=== PATIENT | female | born 1995 | race Caucasian/White ===

== ENCOUNTER 2018-02-22 17:47 | Emergency (ER) | payer BC ==
[~2018-02-22] VITALS: Ht 165.1 cm; Wt 136.0 kg
[2018-02-22 18:41] LABS: HEMATOCRIT 36.7 % (36.0-46.0); MCH 24.8 PG (29.0-34.0); MCHC 32.7 G/DL (30.0-36.0); PLATELET COUNT 306 K/uL (156-360); RBC DIS.WIDTH-CV 13.9 % (11.8-14.6); RED BLOOD COUNT 4.83 M/uL (3.80-5.20); WHITE BLOOD COUNT 11.1 K/uL (4.1-10.2)
[2018-02-22 18:55] LABS: ALBUMIN 3.6 g/dL (3.2-4.8)
[2018-02-22 18:56] LABS: CHLORIDE 109 mEq/L (99-109); SODIUM 140 mEq/L (136-147)
[2018-02-22 18:58] LABS: GLUCOSE 94 mg/dL (70-99); TOTAL PROTEIN 6.8 g/dL (6.4-8.3)
[2018-02-22 19:00] LABS: TOTAL BILIRUBIN 0.2 mg/dL (0.0-1.0)
[2018-02-22 19:01] LABS: ALKALINE PHOSPHATASE 91 IU/L (3-129)
[2018-02-22 19:02] LABS: CREATININE 0.7 mg/dL (0.6-1.3); GFR ESTIMATE (CALCULATED) > 59 mL/min/
[2018-02-22 19:03] LABS: AST (GOT) 12 IU/L (2-34); UREA NITROGEN (BUN) 6 mg/dL (9-23)
[2018-02-22 19:04] LABS: ALT (GPT) 19 IU/L (3-49)
[2018-02-22 20:32] LABS: APPEARANCE SL.HAZY ((CLEAR)); BILIRUBIN NEGATIVE; BLOOD NEGATIVE; COLOR YELLOW ((YELLOW)); GLUCOSE (STRIP) NEGATIVE; KETONES NEGATIVE; LEUKOCYTES NEGATIVE; NITRITE NEGATIVE; PROTEIN (STRIP) NEGATIVE; UROBILINOGEN 0.2 MG/DL (0.2-1.0)
[2018-02-22 20:57] LABS: EPITHELIAL CELLS RARE /HPF; RED BLOOD CELLS 0-5 /HPF (0-5); WHITE BLOOD CELLS 0-5 /HPF (0-5)
[2018-02-22 20:58] LABS: BACTERIA RARE /HPF; CALCIUM OXALATE CRYSTALS 3+ /HPF; MUCUS TRACE /LPF; UCUL ADDED? NO
[2018-02-23 00:16] VITALS: BP 130/73
== END 2018-02-23 00:17 | disposition home or self-care (01) ==
LOC: EME 17:47
DX: O34.82 Maternal care for other abnormalities of pelvic organs, second trimester (principal); N83.202 Unspecified ovarian cyst, left side; Z3A.21 21 weeks gestation of pregnancy
CPT/HCPCS: 76805; 80053; 81003; 84702; 85027; 99281; 99284

== ENCOUNTER 2018-06-27 15:26 | Outpatient (CLI) | payer BC, OTHER ==
[2018-06-27 15:58] VITALS: BP 136/76
[2018-06-27 16:17] VITALS: BP 120/74
[2018-06-27 16:29] VITALS: BP 115/69
[2018-06-27 16:35] LABS: BASOPHIL (%) 0.2 % (0-1); EOSINOPHIL (%) 0.7 % (0-5); EOSINOPHIL COUNT 0.1 K/uL (0-0.3); HEMOGLOBIN 10.2 G/DL (11.9-15.5); IMMATURE GRANULOCYTE (%) 0.5 % (0.0-0.7); LYMPHOCYTE (%) 14.1 % (15-42); LYMPHOCYTE COUNT 1.5 K/uL (1.0-2.8); MCH 22.8 PG (29.0-34.0); MCHC 31.9 G/DL (30.0-36.0); MCV 71.6 FL (83-99); MONOCYTE (%) 7.5 % (3-12); MONOCYTE COUNT 0.8 K/uL (0-0.8); NEUTROPHIL COUNT 8.4 K/uL (1.8-6.4); RBC DIS.WIDTH-CV 14.6 % (11.8-14.6); RBC DIS.WIDTH-SD 37.6 % (39-53); RED BLOOD COUNT 4.47 M/uL (3.80-5.20); WHITE BLOOD COUNT 10.9 K/uL (4.1-10.2)
[2018-06-27 16:40] LABS: CHLORIDE 110 mEq/L (99-109); POTASSIUM 4.1 mEq/L (3.7-5.4); SODIUM 137 mEq/L (136-147)
[2018-06-27 16:43] LABS: GLUCOSE 111 mg/dL (70-99); TOTAL PROTEIN 6.1 g/dL (6.4-8.3)
[2018-06-27 16:45] VITALS: BP 128/62
[2018-06-27 16:45] LABS: TOTAL BILIRUBIN 0.2 mg/dL (0.0-1.0)
[2018-06-27 16:46] LABS: ALKALINE PHOSPHATASE 154 IU/L (3-129); CREATININE 0.7 mg/dL (0.6-1.3); GFR ESTIMATE (CALCULATED) > 59 mL/min/
[2018-06-27 16:47] LABS: UREA NITROGEN (BUN) 7 mg/dL (9-23)
[2018-06-27 16:48] LABS: AST (GOT) 13 IU/L (2-34)
[2018-06-27 16:49] LABS: ALT (GPT) 11 IU/L (3-49)
[2018-06-27 17:15] LABS: PLAT.SUFFICIENCY ADEQUATE; PLATELET COUNT 275 K/uL (156-360)
== END 2018-06-27 17:30 | disposition home or self-care (01) ==
LOC: LDRP-OP 15:26 → 2WEST 15:27 → LDRP-OP 08-03 16:56
PROVIDERS: Nurse Practitioner
DX: O13.9 Gestational [pregnancy-induced] hypertension without significant proteinuria, unspecified trimester (principal); O99.210 Obesity complicating pregnancy, unspecified trimester; E66.9 Obesity, unspecified; O98.319 Other infections with a predominantly sexual mode of transmission complicating pregnancy, unspecified trimester; A60.00 Herpesviral infection of urogenital system, unspecified; O99.340 Other mental disorders complicating pregnancy, unspecified trimester; F32.9 Major depressive disorder, single episode, unspecified; Z3A.00 Weeks of gestation of pregnancy not specified
CPT/HCPCS: 59025; 80053; 82570; 84156; 85025; G0378

== ENCOUNTER 2018-06-30 10:00 | Outpatient (CLI) | payer BC, OTHER ==
[2018-06-30 10:26] VITALS: BP 131/60
[2018-06-30 10:52] VITALS: BP 131/73
[2018-06-30 11:12] VITALS: BP 125/72
[2018-06-30 11:20] LABS: CHLORIDE 109 mEq/L (99-109); POTASSIUM 4.3 mEq/L (3.7-5.4); SODIUM 137 mEq/L (136-147)
[2018-06-30 11:22] LABS: TOTAL PROTEIN 6.2 g/dL (6.4-8.3)
[2018-06-30 11:24] LABS: GLUCOSE 78 mg/dL (70-99); TOTAL BILIRUBIN 0.2 mg/dL (0.0-1.0)
[2018-06-30 11:25] LABS: BASOPHIL (%) 0.3 % (0-1); EOSINOPHIL (%) 1.1 % (0-5); EOSINOPHIL COUNT 0.1 K/uL (0-0.3); HEMATOCRIT 31.8 % (36.0-46.0); IMMATURE GRANULOCYTE (%) 0.6 % (0.0-0.7); LYMPHOCYTE (%) 14.9 % (15-42); LYMPHOCYTE COUNT 1.5 K/uL (1.0-2.8); MCH 22.4 PG (29.0-34.0); MCHC 31.4 G/DL (30.0-36.0); MCV 71.1 FL (83-99); MONOCYTE (%) 8.1 % (3-12); MONOCYTE COUNT 0.8 K/uL (0-0.8); NEUTROPHIL COUNT 7.6 K/uL (1.8-6.4); PLATELET COUNT 355 K/uL (156-360); RBC DIS.WIDTH-CV 14.8 % (11.8-14.6); RBC DIS.WIDTH-SD 37.2 % (39-53); RED BLOOD COUNT 4.47 M/uL (3.80-5.20); WHITE BLOOD COUNT 10.1 K/uL (4.1-10.2)
[2018-06-30 11:26] LABS: ALKALINE PHOSPHATASE 149 IU/L (3-129); CREATININE 0.7 mg/dL (0.6-1.3); GFR ESTIMATE (CALCULATED) > 59 mL/min/
[2018-06-30 11:27] LABS: UREA NITROGEN (BUN) 10 mg/dL (9-23)
[2018-06-30 11:28] LABS: AST (GOT) 11 IU/L (2-34)
[2018-06-30 11:29] LABS: ALT (GPT) 9 IU/L (3-49)
[2018-06-30 11:32] VITALS: BP 124/76
[2018-06-30 19:21] LABS: UR CREATININE CONCENTRATION 169.8 MG/DL
[2018-06-30] MEDS ORDERED: SERTRALINE HCL100 MG PO (22:28)
== END 2018-06-30 13:00 | disposition home or self-care (01) ==
LOC: LDRP-OP 10:00 → 2WEST 10:01 → LDRP-OP 08-03 17:39
PROVIDERS: Advanced Practice Midwife
DX: O13.3 Gestational [pregnancy-induced] hypertension without significant proteinuria, third trimester (principal); Z3A.39 39 weeks gestation of pregnancy; O98.513 Other viral diseases complicating pregnancy, third trimester
CPT/HCPCS: 59025; 80053; 82570; 84156; 84550; 85025; G0378

== ENCOUNTER 2018-06-30 17:59 | Inpatient (IN) | payer BC, OTHER ==
[~2018-06-30] VITALS: Ht 165.1 cm; Wt 151.0 kg
[2018-06-30 18:58] VITALS: BP 124/72
[2018-06-30 20:08] VITALS: BP 128/71
[2018-06-30 21:16] LABS: AMPHETAMINE NEGATIVE (500 ng/mL); BARBITURATES NEGATIVE (200 ng/mL); BENZODIAZEPINES NEGATIVE (150 ng/mL); BUPRENORPHINE NEGATIVE (10 ng/mL); COCAINE NEGATIVE (150 ng/mL); METHADONE NEGATIVE (200 ng/mL); METHAMPHETAMINE NEGATIVE (500 ng/mL); OPIATES (MORPHINE) NEGATIVE (100 ng/mL); OXYCODONE NEGATIVE (100 ng/mL); PHENCYCLIDINE NEGATIVE (25 ng/mL); PROPOXYPHENE NEGATIVE (300 ng/mL); THC CANNABINOIDS NEGATIVE (50 ng/mL); TRICYCLIC ANTIDEPRESSANTS NEGATIVE (300 ng/mL)
[2018-06-30 22:00] VITALS: BP 140/69
[2018-06-30] MEDS ORDERED: SERTRALINE HCL100 MG PO (22:28)
[2018-06-30 22:38] VITALS: BP 145/74
[2018-06-30 23:09] VITALS: BP 130/71
[2018-06-30 23:41] VITALS: BP 144/80
[2018-07-01] VITALS (28 sets, daily range): BP systolic 115–174; BP diastolic 57–86
[2018-07-02] VITALS (23 sets, daily range): BP systolic 115–170; BP diastolic 55–82
[2018-07-02] MEDS ORDERED: ENDOCET 5-3251 EACH PO (12:49)
[2018-07-02] MEDS ORDERED: IBUPROFEN800 MG PO (12:49)
[2018-07-03 02:44] VITALS: BP 127/65
[2018-07-03 06:14] LABS: BASOPHIL (%) 0.1 % (0-1); EOSINOPHIL (%) 0 % (0-5); HEMATOCRIT 27.6 % (36.0-46.0); HEMOGLOBIN 8.5 G/DL (11.9-15.5); IMMATURE GRANULOCYTE (%) 0.6 % (0.0-0.7); LYMPHOCYTE (%) 16.3 % (15-42); LYMPHOCYTE COUNT 2.3 K/uL (1.0-2.8); MCH 22.4 PG (29.0-34.0); MCHC 30.8 G/DL (30.0-36.0); MCV 72.6 FL (83-99); MONOCYTE (%) 9.7 % (3-12); MONOCYTE COUNT 1.4 K/uL (0-0.8); NEUTROPHIL (%) 73.3 % (45-76); NEUTROPHIL COUNT 10.5 K/uL (1.8-6.4); PLATELET COUNT 307 K/uL (156-360); RBC DIS.WIDTH-CV 15.2 % (11.8-14.6); RBC DIS.WIDTH-SD 40.2 % (39-53); WHITE BLOOD COUNT 14.4 K/uL (4.1-10.2)
[2018-07-03 07:07] VITALS: BP 137/73
[2018-07-03 10:39] VITALS: BP 118/69
[2018-07-03 14:39] VITALS: BP 129/66
[2018-07-03 19:32] VITALS: BP 145/82
[2018-07-03 23:34] VITALS: BP 125/61
[2018-07-04 03:18] VITALS: BP 149/73
[2018-07-04 07:09] VITALS: BP 134/70
[2018-07-04 10:29] VITALS: BP 128/74
[2018-07-04 15:16] VITALS: BP 136/65
== END 2018-07-04 19:58 | disposition home or self-care (01) | DRG 765 ==
LOC: LDRP-OP 17:59 → 2WEST 18:00
PROVIDERS: Advanced Practice Midwife; Obstetrics & Gynecology Obstetrics
DX: O62.0 Primary inadequate contractions (principal); O76 Abnormality in fetal heart rate and rhythm complicating labor and delivery; O63.0 Prolonged first stage (of labor); N83.202 Unspecified ovarian cyst, left side; O99.02 Anemia complicating childbirth; D62 Acute posthemorrhagic anemia; O13.4 Gestational [pregnancy-induced] hypertension without significant proteinuria, complicating childbirth; Z3A.39 39 weeks gestation of pregnancy; Z37.0 Single live birth; O98.319 Other infections with a predominantly sexual mode of transmission complicating pregnancy, unspecified trimester; A60.00 Herpesviral infection of urogenital system, unspecified; O42.02 Full-term premature rupture of membranes, onset of labor within 24 hours of rupture; O99.214 Obesity complicating childbirth; E66.01 Morbid (severe) obesity due to excess calories; Z68.43 Body mass index [BMI] 50.0-59.9, adult; O99.344 Other mental disorders complicating childbirth; F32.9 Major depressive disorder, single episode, unspecified
CPT/HCPCS: 59025; 80053; 82570; 84156; 84550; 85025; C1755; G0378; J0595; J0690; J2175; J2274; J2405; J2540; J7120; S0020